=== PATIENT | male | born 1970 | race Hispanic/Latino ===

== ENCOUNTER 2018-08-16 18:41 | Emergency (ER) | payer OTHER ==
[2018-08-16] MEDS ORDERED: ORPHENADRINE CITRATE 30 MG/ML ML ONE (19:03)
[2018-08-16] MEDS ORDERED: KETOROLAC TROMETHAMINE 60 MG/2 ML VIAL ONE (19:03)
[2018-08-16 19:28] LABS: APPEARANCE,URINE Clear (CLEAR); BILIRUBIN,URINE Negative (NEGATIVE); COLOR,URINE Yellow (YELLOW); GLUCOSE, URINE (UA) TRACE mg/dL (NEGATIVE); KETONES,URINE Negative (NEGATIVE); LEUKOCYTE ESTERASE ,URINE Moderate (NEGATIVE); NITRATE,URINE Negative (NEGATIVE); OCCULT BLOOD,URINE Negative (NEGATIVE); PH,URINE 5.5 (5.0-8.0); PROTEIN,URINE Negative (NEGATIVE); UROBILINOGEN,URINE 0.2 mg/dL (0.2-1.0)
[2018-08-16 19:52] LABS: BACTERIA,URINE Rare /HPF (None Seen); RBC,URINE None Seen /HPF (0-1); SQUAMOUS EPITHELIAL CELL,UR None Seen /HPF (0-2); TRICHOMONAS,URINE Few /LPF (None Seen)
== END 2018-08-16 19:48 | disposition home or self-care (01) ==
LOC: EDH 18:41
DX: M54.42 Lumbago with sciatica, left side (principal); E11.9 Type 2 diabetes mellitus without complications; Z98.890 Other specified postprocedural states
CPT/HCPCS: 81001; 96372 ×2; 99284; J1885; J2360

== ENCOUNTER 2019-05-29 10:58 | Emergency (ER) | payer OTHER ==
[2019-05-29 11:42] LABS: CREATININE 0.8 mg/dL (0.5-1.5); POTASSIUM 3.9 mmol/L (3.5-5.1)
[2019-05-29] MEDS ORDERED: ORPHENADRINE CITRATE 30 MG/ML ML ONE (11:49)
[2019-05-29] MEDS ORDERED: KETOROLAC TROMETHAMINE 60 MG/2 ML VIAL ONE (11:50)
[2019-05-29] MEDS ORDERED: LIDOCAINE 5% TOPICAL PATCH TP ONE (11:50)
[2019-05-29] MEDS ORDERED: DIAZEPAM 5 MG TABLET ONE (12:57)
[2019-05-29] MEDS ORDERED: DEXAMETHASONE SOD PHOSPHATE 10MG/ML 1ML VIAL ONE (12:57)
== END 2019-05-29 16:19 | disposition home or self-care (01) ==
LOC: EDH 10:58
DX: M54.16 Radiculopathy, lumbar region (principal); I10 Essential (primary) hypertension; E11.9 Type 2 diabetes mellitus without complications; Z98.890 Other specified postprocedural states
CPT/HCPCS: 36415; 72131; 80048; 96372 ×2; 96374; 99285; J1100; J1885; J2360

== ENCOUNTER 2019-07-23 12:46 | Emergency (ER) | payer SELFPAY ==
[2019-07-23 13:15] LABS: BASOPHILS % (AUTO) 0.6 % (0.0-5.0); EOSINOPHILS % (AUTO) 0.7 % (0.0-8.0); HEMATOCRIT 45.6 % (42-54); LYMPHOCYTES % (AUTO) 14.7 % (21.0-51.0); MEAN CORPUSCULAR HEMOGLOBIN 31.4 pg (27.0-33.0); MEAN CORPUSCULAR HGB CONC 35.1 g/dL (32.0-36.0); MEAN CORPUSCULAR VOLUME 89.4 fL (79-99); MONOCYTES % (AUTO) 4.8 % (3.0-13.0); PLATELET COUNT (AUTO) 268 K/uL (130-400); RED CELL DISTRIBUTION WIDTH 12.7 % (11.0-15.5); WHITE BLOOD COUNT (AUTO) 9.9 K/uL (4.8-10.8)
[2019-07-23 13:25] LABS: POTASSIUM 4.6 mmol/L (3.5-5.1)
[2019-07-23] MEDS ORDERED: SODIUM CHLORIDE 0.9% 1000ML 1,000 ML IV ONE (13:59)
[2019-07-23] MEDS ORDERED: INSULIN HUMULIN R 100 UNIT/ML 3ML ONE (14:28)
== END 2019-07-23 16:23 | disposition home or self-care (01) ==
LOC: EDH 12:46
DX: E86.9 Volume depletion, unspecified (principal); E11.65 Type 2 diabetes mellitus with hyperglycemia; E11.9 Type 2 diabetes mellitus without complications; I10 Essential (primary) hypertension; Z79.899 Other long term (current) drug therapy
CPT/HCPCS: 36415; 80048; 82948; 85025; 96360; 96361; 96372; 99283; J1815; J7030

== ENCOUNTER 2023-11-27 17:17 | Emergency (ER) | payer SELFPAY ==
[~2023-11-27] VITALS: Ht 165.1 cm; Wt 81.6 kg
[2023-11-27] MEDS: ketOROlac 30MG VIAL (30MG/ML) IM ONE (18:08)
[2023-11-27 19:02] VITALS: BP 157/79; PULSE 84; RESP 18; TEMP 97.7; O2SAT 99
[2023-11-27] MEDS ORDERED: KETO10TA2 PO (19:07)
[2023-11-27] MEDS ORDERED: ACET-2079 PO (19:07)
== END 2023-11-27 19:21 | disposition home or self-care (01) ==
LOC: EDH 17:17
DX: M25.462 Effusion, left knee (principal); E11.9 Type 2 diabetes mellitus without complications; M79.605 Pain in left leg; Z79.899 Other long term (current) drug therapy
CPT/HCPCS: 99285; 93971; 73562; 96372; J1885